=== PATIENT | female | born 1960 | race African-American/Black ===

== ENCOUNTER 2020-05-15 14:58 | Inpatient (IN) | payer OTHER ==
[~2020-05-15] VITALS: Ht 160 cm; Wt 110.7 kg
[~2020-05-15 14:58] MED LIST: ACCUPRIL; ADVAIR 500-501 EACH; AMOXICILLIN875 MG PO; ARTHROTEC 50 E1 EACH; HYDROCHLOROTHIA25 M1; LANTUS; LEVOTHYROXIN0.125 M2; LIPITOR40 MG; NEXIUM40 MG; NORVASC10 MG; ROBAXIN 750 MG750 MG; TRAMADOL 50 MG50 MG
[2020-05-15 15:02] VITALS: BP 77/47
--- NOTE | 2020-05-15 15:44 | NUR ---
UNSUCCESSFUL IV ATTEMPT. CALLED LAB AND REQUESTED FOR STAT BLOOD DRAW. TASHI WITH IV TEAM STATED THEY CANNOT PLACE LINE UNTIL BLOOD DRAWN
--- NOTE | 2020-05-15 15:54 | NUR ---
CANDACE STATED FIRST EMERGENCY CONTACT IS AUNT CAMMIE COLON [phone] SPOKE TO CAMMIE WHO STATES SHE HAS NO HISTORY ON PT AND REQUESTS SPOUSE BE CALLED AND BE CHANGED TO FIRST EMERGENCY CONTACT. SPOUSE NAME [phone]. ATTEMPTED TO CALL ANGELA WITH NO ANSWER AND UNAVAILABLE TO LEAVE VOICE MESSAGE.
[2020-05-15 16:15] LABS: HEMATOCRIT 28.2 % (37.0-47.0); HEMOGLOBIN 8.9 gm/dL (12.0-15.0); MCH 28.7 pg (26.0-34.0); MCHC 31.6 g/dL (28.0-37.0); MCV 91.1 fL (80.0-100.0); RBC 3.1 mil/uL (4.20-5.00); RDW 17.2 % (10.5-14.5)
[2020-05-15 16:24] LABS: CALCIUM 8.9 mg/dL (8.5-10.1); CREATININE 4.5 mg/dL (0.6-1.0); POTASSIUM 3.6 mmol/L (3.5-5.1)
[2020-05-15 16:30] LABS: ALBUMIN 1.7 g/dL (3.4-5.0); TOTAL BILIRUBIN 0.4 mg/dL (0.2-1.0); TOTAL PROTEIN 7.1 g/dL (6.4-8.2)
[2020-05-15 16:36] LABS: APTT 33.6 Seconds (24.5-32.8); INR 1.1; PROTIME 12.4 Seconds (9.3-11.4)
--- NOTE | 2020-05-15 18:06 | NUR ---
VAT CONSULTED FOR CVAD. PT HAS NONFCN FISTULAS BILATERALLY. BOTH IJ'S ATTEMPTED BUT UNABLE TO PASS GUIDEWIRE ON EITHER SIDE. DR GRANADOS NOTIFIED THAT IR WILL BE NEEDED FOR PLACEMENT. PIV OBTAINED AFTER 5 ATTEMPTS
[2020-05-15 18:55] VITALS: BP 91/52
[2020-05-15 20:03] VITALS: BP 134/60
[2020-05-15] MEDS ORDERED: ELIQUIS2.5 MG PO (20:48)
[2020-05-15] MEDS ORDERED: AMIODARONE HCL400 MG PO (20:48)
[2020-05-15] MEDS ORDERED: ASA81BEC PO (20:49)
[2020-05-15] MEDS ORDERED: ATORVASTATIN CA20 MG PO (20:50)
[2020-05-15] MEDS ORDERED: CYMBALTA60 MG PO (20:51)
[2020-05-15] MEDS ORDERED: FLORINEF ACETA0.1 MG PO (20:52)
[2020-05-15] MEDS ORDERED: NEURONTIN100 MG PO (20:55)
[2020-05-15] MEDS ORDERED: HUMALOG100 UNIT/1 SUBQ (20:59)
[2020-05-15] MEDS ORDERED: LANTUS SUBQ (20:59)
[2020-05-15] MEDS ORDERED: IPRAT-ALBUT 0.5-3 ML INH (21:01)
[2020-05-15] MEDS ORDERED: LEVOXYL88 MCG PO (21:02)
[2020-05-15] MEDS ORDERED: MIDODRINE HCL 55 M1 PO (21:04)
[2020-05-15] MEDS ORDERED: PERCOCET 5-3251 EACH PO (21:05)
[2020-05-15] MEDS ORDERED: SEROQUEL 25 MG25 M1 PO (21:06)
[2020-05-15] MEDS ORDERED: PROTONIX40 M2 PO (21:06)
[2020-05-15] MEDS ORDERED: RENVELA0.8 GM PO (21:07)
[2020-05-15 22:10] VITALS: BP 96/60
[2020-05-16 00:26] VITALS: BP 90/66
--- NOTE | 2020-05-16 03:25 | NUR ---
PT ADMITTED FROM ER FROM [facility] FOR SEPSIS, LLE ARTERIAL OCCLUSION, R/O COVID , ANEMIA, FOR POSSIBLE PROCEDURE.NPO AFTER MN. NS BOLUS GIVEN FOR LOW BP. PT ASYMPTOMATIC WITH BP. DR GARCIA WAS NOTIFIED. FENTANYL 50 MCG GIVEN X1 FORE C/O SEVERE LLE PAIN. LLE IS DISCOLORED. AREAS AROUND KNEE HEEL AND TOES APPEAR DISCOLORED AND NECROTIC. UNABLE TO OBTAIN PEDAL PULSE WITH DOPPLER. RIGHT FOOT HAS PULSE WITH DOPPLER. SKIN IS MILDLY COOL TO TOUCH. SATS 98% ON 2LNC. LUNG SOUNDS ARE DIMINSHE BUT UNLABORED ON 2LNC. PICTURES OF WOUNDS LOCATED FROM FALL ON HEAD AND AREAS ON BUTTOCKS, SACRAL, LEFT KNEE ANKLE, FOOT, GROIN AREAS NEAR THIGHS. BTOCKS. ALL PICTURED UPON ADMISSION . PT NPO AFTER MN. SHE IS SLEEPING QUIETLY PRESENTLY AFTER FENTANYL FOR PAIN.
[2020-05-16 05:59] VITALS: BP 119/47
--- NOTE | 2020-05-16 07:17 | EKG ---
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 : 1960 Requested By: Fiordaliza Han Order Number: [id number] MD: Sung Ngo Measurements Intervals [place] Rate: 117 P: HI: QRS: 112 QRSD: 96 T: -14 QT: 346 QTc: 483 Interpretive Statements Baseline artifact Possible sinus tachycardia with first-degree AV block cannot rule out atrial flutter Incomplete right bundle branch block Prolonged QT No previous ECG available for comparison Electronically Signed On 05-16-2020 7:17:45 PLATFORM STAPLER by Sung Ngo [email or web address] <ELECTRONICALLY SIGNED> By: Sung Ngo MD, [facility] 05/16/20 0717 D: [id number] 12 Sung Ngo MD, [facility] /EPI
--- NOTE | 2020-05-16 07:49 | NUR ---
PT SLEEPY. SHE HAS BEEN NPO SINCE AFTER MN. DIALYSIS IS IN PROGRESS PRESENTLY. BP BETTER THIS AM. ALL WOUNDS PICTURED AND FOAM DRESSINGS APPLIED UNTIL W/C PUTS IN ORDERS. NO S/S DISTRESS.
[2020-05-16 09:03] VITALS: BP 77/39
[2020-05-16 11:58] VITALS: BP 85/54
--- NOTE | 2020-05-16 15:25 | NUR ---
INITIAL ASSESSMENT: Consult received. DANIELA reviewed chart and spoke with nursing and attending physician. Pt was admitted from [facility] due to sepsis/left foot wound. Pt is on IV abx. Pt with hx of ESRD and is on dialysis. DANIELA spoke with pt's cousin, Maldonado, via phone. Introduced role of DANIELA. Pt's cousin and aunt are listed as contacts for pt. Pt has been at [facility] for skilled placement. PT was at [facility] prior to going to [facility]. Pt is normally w/c bound. Pt was living at home prior to hospitalization. Pt's cousin states pt was recently assigned to a new PCP and unsure name of new PCP. Plan is for pt to return to [facility] when medically stable. DANIELA faxed clinical info to [facility] for review. DANIELA is following to assist as needed with discharge planning.
[2020-05-16 19:31] VITALS: BP 129/50
--- NOTE | 2020-05-16 21:40 | NUR ---
PT RESTING IN BED TALKING ON PHONE. PT STATING SHE IS CALLING HER BUT NOT DIALING ANY NUMBERS AND DECLINING STAFF ASSISTANCE. PT ALERT TO SELF AND SITUATION. IVF INTACT. PT VERBALIZED UNDERSTANDING OF SURGERY TOMORROW LATE AFTERNOON. PT EDUCATED NPO AFTER BREAKFAST. PT INCONTINENT OF LOOSE STOOL WITH ODOR. MULTIPLE WOUNDS ON BOTTOM AND BARRIER CREAM APPLIED, FRONT OF THIGHS HAVE FOAM DRESSINGS INTACT. RLE NO PULSE PREVIOUSLY DOCUMENTED, RLE REQUIRING DOPPLER FOR PULSE CHECK. PT C/O PAIN BOTTOM AND LLE PRN PROVIDED. STAFF REPOSITIONING PT. BED ALARM ON. PT YELLS OUT FOR ASSISTANCE VERSUS USING CALL LIGHT.
--- NOTE | 2020-05-16 21:43 | NUR ---
RECORDS FROM [facility] OBTAINED BY FAX.
[2020-05-16 23:06] LABS: HEP B SURFACE Ab(ANTI-HBS Non Reactive (()); HEPATITIS B SURFACE AG Negative (Negative)
[2020-05-17 03:21] VITALS: BP 103/50
[2020-05-17 05:33] LABS: HEMATOCRIT 28.8 % (37.0-47.0); HEMOGLOBIN 8.7 gm/dL (12.0-15.0); MCH 28.4 pg (26.0-34.0); MCHC 30.1 g/dL (28.0-37.0); MCV 94.2 fL (80.0-100.0); RBC 3.05 mil/uL (4.20-5.00); RDW 17.4 % (10.5-14.5); WBC 8.6 thou/uL (4.0-11.0)
[2020-05-17 05:37] LABS: CALCIUM 8.3 mg/dL (8.5-10.1); MAGNESIUM 1.7 mg/dL (1.8-2.4); POTASSIUM 3.9 mmol/L (3.5-5.1)
[2020-05-17 06:05] LABS: CREATININE 2.8 mg/dL (0.6-1.0)
[2020-05-17 09:29] LABS: BE(vivo) 3.3 mmol/L (-2 to +3); HCO3 28.7 mmol/L (22.0-26.0); PCO2 47.9 mmHg (35.0-45.0); PO2 141.2 mmHg (80.0-100.0); pH 7.395 (7.360-7.450); sO2 98.8 % (92.0-98.0)
--- NOTE | 2020-05-17 09:45 | NUR ---
INFORMED DR ODONENLL OF PT [facility] LABS
[2020-05-17 10:36] LABS: ALBUMIN 1.5 g/dL (3.4-5.0); TOTAL BILIRUBIN 0.4 mg/dL (0.2-1.0); TOTAL PROTEIN 5.8 g/dL (6.4-8.2)
[2020-05-17 12:05] VITALS: BP 115/63
--- NOTE | 2020-05-17 12:55 | NUR ---
DANIELA reviewed chart and spoke with nursing and attending physician. Pt is on IV abx. Ortho consulted. Pt to have surgery today, possible amputation. DANIELA faxed clinical info to [facility] for review. Left message for admissions to provide update. DANIELA is following to assist as needed with discharge planning.
--- NOTE | 2020-05-17 14:00 | NUR ---
PT OFF UNIT WITH SURGERY
[2020-05-17 16:02] VITALS: BP 96/63
--- NOTE | 2020-05-17 19:18 | NUR ---
PT REMAINS IN SURGERY AT CHANGE OF SHIFT.
[2020-05-17 19:40] VITALS: BP 89/50
[2020-05-17 20:31] VITALS: BP 90/50
[2020-05-17 21:02] VITALS: BP 95/50
--- NOTE | 2020-05-17 21:07 | NUR ---
PROVIDER CONTACTED RE RESTARTING PTS DIET SINCE SURGERY COMPLETE.
--- NOTE | 2020-05-17 21:45 | HC ---
[facility] [place] [address] CONSULTATION Name: JUDITH GAMING Room #: 364- ADM IN M.R.#: [id number] Admission: 05/15/20 Attend Phys: Grant Jefferson MD Discharge: Date of : 58 Report #: [id number] THIS REPORT FOR: cc: FAM - Family physician unknown FAM - Family physician unknown Clinton Young DO ~ DATE OF SERVICE: 05/16/2020 ASSESSMENT AND PLAN: Arterial insufficiency, left lower extremity after tibial nailing in 03/2020 with arterial occlusion. RECOMMENDATIONS: At this point, I have recommended and discussed with the patient at length her treatment options. Because she is currently having symptoms from necrosis of her left lower extremity, I have recommended removal of tibial nail and vboja-vvh-yrso amputation. All risks, benefits, possible complications, alternative treatments and rationale behind treatment recommendations were discussed and she expresses understanding. We will plan on proceeding with procedure over the next 24-48 hours. HISTORY OF PRESENT ILLNESS: This is a 60-year-old female with multiple medical conditions including congestive heart failure, COPD, end-stage renal disease with dialysis dependence, type 2 diabetes with chronic kidney disease and hypertension. ALLERGIES: None. MEDICATIONS: Reviewed on the MAY in the electronic health record ____ [employer]. PHYSICAL EXAMINATION: GENERAL: The patient is awake and alert and in no acute distress. CARDIOVASCULAR: Reveals no significant lower extremity edema. ABDOMEN: Soft and nontender. NEUROLOGIC: Left lower extremity is insensate to the foot and ankle. MUSCULOSKELETAL: Focused exam of the left lower extremity reveals necrosis of the great toe as well as multiple areas of the lesser toes extending into the forefoot and mid foot. No palpable pulse. Sensation is not intact. The skin appears to be that of dry gangrene necrosis. RADIOLOGY STUDIES: Reviewed with CTA on 05/15/2020 reveal findings consistent with advanced fatty atrophy of the abductor digiti minimi as well as a healing [address] [address] CONSULTATION Name: JUDITH GAMING Room #: 364-P ADM IN .R.#: [id number] Admission: 05/15/20 Attend Phys: Grant Jefferson MD Discharge: Date of : 58 Report #: [id number] oblique fracture of the distal fibula and findings consistent with significant arterial occlusion. <ELECTRONICALLY SIGNED> By: Clinton Young DO 05/17/20 2145 1023 [id number] Clinton Young DO /nt
--- NOTE | 2020-05-17 22:36 | NUR ---
PT RETURNED FROM SURGERY APPROX 1999. PT AOX2 PREVIOUS ORIENTATION. PT SMILING TALKING. L STUMP WRAPPED IN TAYLOR AND DRY AND INTACT, WARM FOR CIRCULATION CHECK. RLE SCD ON, DOPPLER REQUIRED FOR PULSE CHECK. PT TOLERATING LIQUIDS. PT RESTING. PRN FOR PAIN REQUESTED. STAFF TO REPOSITION. BED ALARM ON.
[2020-05-18] VITALS (10 sets, daily range): BP systolic 83–113; BP diastolic 43–85
--- NOTE | 2020-05-18 03:00 | NUR ---
PTS HR INCREASED TO 120, VS TAKEN AND PROVIDER CALLED. DURING PHONE CALL HR RETURNED TO 88. PT DENIED BEING IN PAIN. PT NOW RESTING. NO NEW ORDERS.
[2020-05-18 05:32] LABS: CALCIUM 8.6 mg/dL (8.5-10.1); CREATININE 3.6 mg/dL (0.6-1.0); MAGNESIUM 1.9 mg/dL (1.8-2.4); POTASSIUM 4.8 mmol/L (3.5-5.1)
[2020-05-18 05:38] LABS: HEMATOCRIT 28.3 % (37.0-47.0); HEMOGLOBIN 8.3 gm/dL (12.0-15.0); MCHC 29.4 g/dL (28.0-37.0); MCV 95.3 fL (80.0-100.0); RBC 2.97 mil/uL (4.20-5.00); RDW 17.4 % (10.5-14.5); WBC 9.7 thou/uL (4.0-11.0)
--- NOTE | 2020-05-18 13:04 | NUR ---
PT VITALS STABLE, PT ACTING VERY DROWSY. ABLE TO SMILE EQUALLY, RAISE BOTH HANDS. TRACK WITH EYES, PUPILS SLUGGISH. CONTACTED MACHINE CELL TUBER, REPEAT ASSESSMENT. PT IS DUE FOR DIALYSIS THIS AFTERNOON. WILL MONITOR VS, LOC FOR CHANGE.
--- NOTE | 2020-05-18 13:18 | NUR ---
PT IN ROOM VISITING. PT IS AROUSABLE BUT WILL NOT SPEAK. PT CLARIFIED PT DOES WANT FULL CODE INCLUDING CHEST COMPRESSIONS.
--- NOTE | 2020-05-18 13:27 | NUR ---
PT SPOUSE STATES PT HAS TRILOGY MACHINE TO SLEEP WITH. PT SPOUSE LEFT HOSPITAL TO GET MACHINE FROM [facility]
[2020-05-18 14:06] LABS: BE(vivo) -0.8 mmol/L (-2 to +3); PCO2 54.3 mmHg (35.0-45.0); PO2 65.8 mmHg (80.0-100.0); pH 7.298 (7.360-7.450); sO2 90.6 % (92.0-98.0)
--- NOTE | 2020-05-18 14:10 | NUR ---
PHYSICIAN PAGED FOR CRITICAL LAB
--- NOTE | 2020-05-18 14:17 | NUR ---
DR ODONNELL ADVISED BIPAP. RT IN ROOM HOOKING UP BIPAP.
--- NOTE | 2020-05-18 15:20 | NUR ---
PT ON BIPAP, TOLERATING WELL. PT SPOUSE IN ROOM, BROUGHT HOME TRILOGY TO PT ROOM.
--- NOTE | 2020-05-18 18:39 | NUR ---
THIS RN WITNESSED BRIGHT RED BLOOD DURING WOUND CARE TEAM EXAMINATION OF PT AROUND 1809. DR BELLE QUINTANILLA, 500ML BOLUS ORDER RECEIVED. CONSULTED RENAL, GI. RECOMMENDATION TRANSFER TO ICU.
--- NOTE | 2020-05-18 19:28 | NUR ---
REPORT GIVEN TO STEEL CUTTER. DIALYSIS NURSE IN ROOM WITH PT. PT REQUESTING PAIN MEDICATION. PT IS ALERT AND RESPONSIVE. BRIGHT RED BLOOD STILL PRESENT FROM RECTUM.
[2020-05-18 19:33] LABS: HEMATOCRIT 23.7 % (37.0-47.0); HEMOGLOBIN 7.1 gm/dL (12.0-15.0)
--- NOTE | 2020-05-18 20:36 | NUR ---
A #6F TRIPLE LUMEN CENTRAL LINE WAS PLACED IN THE LEFT IJ. VAT NURSE ATTEMPTED 2 SITES PRIOR. THIS WAS THE 3RD ATTEMPT AT PLACEMENT. LINE SECURED AND A CHEST XRAY WAS ORDERED FOR CONFIRMATION
--- NOTE | 2020-05-18 23:48 | NUR ---
REPORT RECIVED. PATIENT IS A/OX2. REMAINS LETHARGIC. DIALYSIS ON PROGRESS. BP TOLERATING DIALYSIS. AFEBRILE. RECTAL BLEED NOTED. TALKED TO DR ESQUIVEL. DOES NOT WANT TO TRANSFUSE AT THE MOMENT. WILL MONITOR AND RECHECK HG IN THE AM. PATIENT HAS TX ORDERS TO ICU. REPORT CALLED TO HOSPICE ADMINISTRATOR. PATIENT OFF THE UNIT APPROX 2300. ALL QUESTIONS ANSWERED. DENIES NEEDS.
[2020-05-19] VITALS (65 sets, daily range): BP systolic 65–148; BP diastolic 25–124
--- NOTE | 2020-05-19 01:43 | NUR ---
Patient succesfully transfered to ICU room 240 at 2340. Patient stable on protonix gtt. Discussed low blood pressures and status with KD Piña. No new orders at this time. Will continue to monitor.
[2020-05-19 05:53] LABS: HEMATOCRIT 25.1 % (37.0-47.0); HEMOGLOBIN 7.5 gm/dL (12.0-15.0); MCH 28.1 pg (26.0-34.0); MCHC 29.7 g/dL (28.0-37.0); MCV 94.8 fL (80.0-100.0); RBC 2.65 mil/uL (4.20-5.00); RDW 17.7 % (10.5-14.5); WBC 9.7 thou/uL (4.0-11.0)
[2020-05-19 06:07] LABS: CALCIUM 8.5 mg/dL (8.5-10.1); POTASSIUM 3.4 mmol/L (3.5-5.1)
[2020-05-19 06:15] LABS: CREATININE 2.3 mg/dL (0.6-1.0)
--- NOTE | 2020-05-19 13:37 | NUR ---
chart review, pt came down from 3w, blood stool. needed bipap at hs and 4Lnc day time. discussed with hospitalist, no anticipated dc over weekend. will cont following as needed for dc needs. will update aura early next week.
[2020-05-19 14:09] LABS: HEMATOCRIT 24.7 % (37.0-47.0); HEMOGLOBIN 7.3 gm/dL (12.0-15.0)
--- NOTE | 2020-05-19 15:01 | NUR ---
ASSUMED CARE AT 0700. PATIENT OFF UNIT FOR GI PROCEDURE AT 1440.
[2020-05-20] VITALS (87 sets, daily range): BP systolic 61–185; BP diastolic 23–156
[2020-05-20 05:19] LABS: CALCIUM 8.5 mg/dL (8.5-10.1); CREATININE 2.8 mg/dL (0.6-1.0); MAGNESIUM 1.7 mg/dL (1.8-2.4); POTASSIUM 3.6 mmol/L (3.5-5.1)
[2020-05-20 05:30] LABS: HEMOGLOBIN 6.7 gm/dL (12.0-15.0)
[2020-05-20 05:32] LABS: HEMATOCRIT 22.1 % (37.0-47.0); MCH 28.7 pg (26.0-34.0); MCHC 30.5 g/dL (28.0-37.0); MCV 93.9 fL (80.0-100.0); RBC 2.35 mil/uL (4.20-5.00); RDW 17.7 % (10.5-14.5); WBC 9.3 thou/uL (4.0-11.0)
--- NOTE | 2020-05-20 14:12 | NUR ---
DIALYSIS COMPLETED. PT CLEANED OF LARGE DARK RED BLOODY LIQUID STOOL WITH LARGE CLOTS NOTED. DR. BELLE QUINTANILLA.
--- NOTE | 2020-05-20 14:15 | NUR ---
PAGE SENT OUT TO DR. MENDEZ WITH GI GROUP REGARDING ACTIVE LOWER GIB.
[2020-05-20 14:39] LABS: HEMOGLOBIN 6.6 gm/dL (12.0-15.0)
[2020-05-20 14:41] LABS: HEMATOCRIT 21.4 % (37.0-47.0)
[2020-05-20 16:37] LABS: APTT 38.1 Seconds (24.5-32.8); INR 1.1; PROTIME 12.3 Seconds (9.3-11.4)
--- NOTE | 2020-05-20 17:51 | NUR ---
PT HAD TWO EPISODES OF VERY LARGE BLOODY STOOLS RESULTING IN THE PT GOING TO THE OR FOR A FLEX SIG AND POSSIBLE EGD W/ GENERAL ANESTHESIA. DIALYSIS DONE TODAY. PRBC X 2 UNITS GIVEN TODAY. PT NPO AND HAS HAD PROBLEMS WITH HYPOGLYCEMIA. D5W INFUSION STARTED TODAY. PT HAS HAD C/O PAIN IN HER "LEFT FOOT". OVERALL, PT NOT PROGRESSING TOWARD GOALS.
--- NOTE | 2020-05-20 19:00 | NUR ---
AT 1830, PT ARRIVED BACK TO UNIT VIA BED. PT PLACED BACK ON CONTINUOUS CARDIAC MONITORING. PT ON NRB MASK, DROWSY, BUT AWAKENS TO VOICE AND FOLLOWS COMMANDS. REPORT RECEIVED AT BEDSIDE. PT'S , DOMINIC, CALLED AND PROVIDED UPDATE, GIVEN OPPORTUNITY TO ASK QUESTIONS. REASSURANCES AND EMOTIONAL SUPPORT PROVIDED.
[2020-05-21] VITALS (42 sets, daily range): BP systolic 67–143; BP diastolic 19–127
[2020-05-21 04:00] LABS: CALCIUM 7.9 mg/dL (8.5-10.1); CREATININE 2.1 mg/dL (0.6-1.0); POTASSIUM 3.8 mmol/L (3.5-5.1)
[2020-05-21 04:58] LABS: HEMATOCRIT 22.9 % (37.0-47.0); HEMOGLOBIN 7.2 gm/dL (12.0-15.0); MCH 28.8 pg (26.0-34.0); MCHC 31.4 g/dL (28.0-37.0); RBC 2.49 mil/uL (4.20-5.00); WBC 17.2 thou/uL (4.0-11.0)
--- NOTE | 2020-05-21 10:00 | NUR ---
ASSUMMED CARE OF THIS PATIENT FROM [facility] AT 0700 THIS AM. PATIENT INITIALLY ALERT AND ABLE TO TAKE AM MEDICATIONS. SLEEPING NOW.
[2020-05-21 13:10] LABS: BE(vivo) 0.1 mmol/L (-2 to +3); HCO3 25.9 mmol/L (22.0-26.0); PCO2 48.4 mmHg (35.0-45.0); PO2 86.4 mmHg (80.0-100.0); pH 7.346 (7.360-7.450)
--- NOTE | 2020-05-21 14:00 | NUR ---
PATIENT NOTED TO MORE LETHARGIC AT [address] ODONNELL ROUNDED AND AWARE OF PATIENT STATUS. ORDERS NOTED. UNABLE TO TAKE PO AT NOON DUE TO ASPIRATION RISK. ABG'S DRAWN AND CALLED TO DR ODONNELL. PATIENT PLACED BACK ON THE BIPAP.
--- NOTE | 2020-05-21 19:14 | NUR ---
PATIENT INITIALLY SLEEPING BUT AWOKE WITH DRESSING CHANGE. C/O LOWER EXTERMITY PAIN. PAIN ISSUE ADDRESSED. ABLE TO TAKE DIET THIS EVENING AND ORIENTED TO PERSON AND PLACE. YELLING AT TIMES AND MONITOR SHOWING ST WITH AGGITATION. PATIENT IS CALM NOW AND MONITOR SR. PROGRESSING SLOWLY TOWARDS OUTCOME GOALS.
[2020-05-22] VITALS (41 sets, daily range): BP systolic 80–159; BP diastolic 22–94
[2020-05-22 03:08] LABS: MCH 28.9 pg (26.0-34.0); MCHC 31.9 g/dL (28.0-37.0); MCV 90.5 fL (80.0-100.0); RBC 2.16 mil/uL (4.20-5.00); RDW 17.9 % (10.5-14.5); WBC 14.9 thou/uL (4.0-11.0)
[2020-05-22 03:12] LABS: CALCIUM 8.3 mg/dL (8.5-10.1); CREATININE 2.7 mg/dL (0.6-1.0); POTASSIUM 3.2 mmol/L (3.5-5.1)
[2020-05-22 03:26] LABS: HEMOGLOBIN 6.2 gm/dL (12.0-15.0)
[2020-05-22 03:27] LABS: HEMATOCRIT 19.5 % (37.0-47.0)
--- NOTE | 2020-05-22 11:54 | NUR ---
chart review. discussed during rounds. bs low, o2 nc and bipap. unable to visit with her rt speech visiting her. cm spoke with cousin jovany via phone call. no concerns voiced, just want to talk with nurse make sure he can still visit. cm passed on to bedside nurse to call jovany. updates to be provided to [facility].
--- NOTE | 2020-05-22 13:02 | NUR ---
If PEG is functioning, recommend start Nepro at 20ml/hr and progress to goal of 40ml/hr until determined if pt can take po with tolerance.
[2020-05-22 13:27] LABS: HEMATOCRIT 24.8 % (37.0-47.0); HEMOGLOBIN 7.9 gm/dL (12.0-15.0)
--- NOTE | 2020-05-22 15:31 | NUR ---
FAXED CLINICAL UPDATE TO [facility] RECEIVED CONFIRMATION AND TRIED TO LEAVE MSG WITH THE (DON) BUT WAS ON HOLD FOR 8 MINUTES. WILL F/U WITH FACILITY TOMORROW.
--- NOTE | 2020-05-22 18:31 | PATH ---
[facility] [address] [place] [address] PATHOLOGY RPT PROCEDURE Name: JUDITH GAMING Room #: 240-P ADM IN M.R.#: [id number] Admission: 05/15/20 Date of : 58 Discharge: Report #: [id number] Path Case #: [id number] [facility] Accession Number: [id number] . 01 Material submitted: . knee - LEFT BELOW THE KNEE AMPUTATION . 01 Clinical history: . BELOW KNEE AMPUTATION NECROTIC LEFT LEG . 02 Diagnosis: Leg, left, below knee amputation: - Skin and subcutaneous tissue showing extensive ulceration along with gangrenous necrosis as well as degeneration. - Bone with acute osteomyelitis as well as osteonecrosis. - Anterior and posterior tibial vasculature showing moderate to marked calcific atherosclerosis. - Skin margin partially necrotic at the lateral aspect. - Bone margin grossly viable and unremarkable. (IUV:bijan; 05/22/2020) MBR 05/22/2020 1624 Local . 02 Electronically signed: . Ashlee Garnett MD, Pathologist NPI- [id number] . 01 Gross description: . The specimen is received fresh in a red biohazard bag, labeled "Judith Gaming, left below knee amputation". Received is a left below the knee amputation measuring 23.0 cm from heel to toe, 16.6 cm from heel to skin margin, 30.6 cm from heel to tibial bone margin, and 33.3 cm from heel to fibular bone margin. The bone margins are blunt in appearance, consistent with transection, and appear grossly unremarkable. All five toes are present. The nails are yellow-jane and severely thickened in appearance. All five toes are dusky coello-brown to predominately mummified in appearance. The skin and soft tissue margins appear predominately viable. There is an overlying area along the lateral aspect of the skin at the margin that is dark coello and flaky in appearance measuring 11.3 x 3.5 cm. Overlying the medial malleolus, there is a linear incision measuring 4.8 cm in length displaying underlying bone that appears to be fractured. Near this linear incision, the epidermal surface is light brown to coello-brown in appearance. There is a second linear incision on the anterior aspect of the lower iniguez measuring 5.5 x 1.0 cm exposing underlying soft tissue. Sectioning through the anterior and posterior tibial vasculatures reveals pinpoint to patent and slightly calcified lumens. The specimen is submitted representatively as follows: [address] [address] PATHOLOGY RPT PROCEDURE Name: JUDITH GAMING Room #: 240-P ADM IN M.R.#: [id number] Admission: 05/15/20 Date of : 58 Discharge: Report #: [id number] Path Case #: [id number] . A1 grossly unremarkable skin and soft tissue margin A2 counter sales representative section of dusky coello, flaky skin on lateral aspect of skin margin A3 counter sales representative bone fragments from linear incision overlying medial malleolus, following decalcification A4 counter sales representative sections of lesion surrounding first described linear incision A5 anterior and posterior tibial vasculatures. A6 counter sales representative sections of second described linear incision . Gross photographs are taken. (CAA; 05/20/2020) QAC/QAC 05/22/2020 1620 Local . 02 Pathologist provided ICD-10: L97.929, M86.172, M87.9, I70.90 . 02 CPT . 306796, [id number] Specimen Comment: A courtesy copy of this report has been sent to [phone] Specimen Comment: Report sent to Performed at: [address] [facility], [place], [place] [id number] MD Ramez Varghese MD Phone: [phone] Performed at: [address] [facility] [id number] MD Ashlee Garnett MD Phone: [phone]
[2020-05-23] VITALS (51 sets, daily range): BP systolic 77–160; BP diastolic 27–72
--- NOTE | 2020-05-23 04:19 | NUR ---
ASSUMED CARE OF PATIENT FROM RN AT APPROXIMATELY 2200. REQUESTED PAIN MEDICINE ONE TIME, STATES IT RELIEVES PAIN. AT 0330 HEART RATE INCREASED TO 130'S-140'S, STAT EKG OBTAINED. Jeniffer VILLAGOMEZ OPTICAL SCIENTIST NOTIFIED OF ABNORMAL RESULTS. ORDERS RECIEVED. PATIENT WORE HOME BIPAP WHILE SLEEPING. NO OTHER CONCERNS AT THIS TIME. PROGRESSING SLOWLY TOWARDS POC GOALS.
[2020-05-23 05:11] LABS: HEMATOCRIT 24.6 % (37.0-47.0); HEMOGLOBIN 7.9 gm/dL (12.0-15.0); MCH 28.5 pg (26.0-34.0); MCV 89.1 fL (80.0-100.0); RBC 2.76 mil/uL (4.20-5.00); RDW 18.3 % (10.5-14.5); WBC 16.7 thou/uL (4.0-11.0)
[2020-05-23 05:35] LABS: CREATININE 3.4 mg/dL (0.6-1.0); POTASSIUM 3.4 mmol/L (3.5-5.1)
--- NOTE | 2020-05-23 07:20 | EKG ---
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 : 1960 Requested By: Rocio Benavides Order Number: [id number] MD: Uday Loera Measurements Intervals [place] Rate: 138 P: WI: QRS: 100 QRSD: 69 T: 256 QT: 300 QTc: 455 Interpretive Statements AFIB Right axis deviation Low voltage, precordial leads Borderline repolarization abnormality Compared to ECG 05/15/2020 16:13:57 2:1 AV block now present Right-axis deviation now present Low QRS voltage now present Incomplete right bundle-branch block no longer present Prolonged QT interval no longer present Electronically Signed On 05-23-2020 7:19:51 CDT by Uday Loera [email or web address] <ELECTRONICALLY SIGNED> By: Uday Loera MD, FAC 05/23/20 0719 3 3 Uday Loera MD, [facility] /EPI
[2020-05-23 17:32] LABS: HEMATOCRIT 24.6 % (37.0-47.0); HEMOGLOBIN 7.7 gm/dL (12.0-15.0)
--- NOTE | 2020-05-23 19:07 | NUR ---
ASSUMED CARE 0700. PT AFTERNOON BM SUSPICIOUS OF RECTAL BLEED... GI AND GENERAL SURGERY MADE AWARE. H&H DRAWN. HGB LITTLE CHANGE. CONTINUE TO MONITOR. AFIB RATE CONTROLLED W/PO AMIO THROUGHOUT DAY.1L REMOVED VIA DIALYSIS THIS AM.
[2020-05-24] VITALS (33 sets, daily range): BP systolic 65–192; BP diastolic 29–74
[2020-05-24 05:48] LABS: HEMATOCRIT 24.7 % (37.0-47.0); MCH 28.6 pg (26.0-34.0); MCHC 32.2 g/dL (28.0-37.0); RBC 2.78 mil/uL (4.20-5.00); RDW 17.6 % (10.5-14.5); WBC 18.5 thou/uL (4.0-11.0)
[2020-05-24 06:48] LABS: POTASSIUM 3.5 mmol/L (3.5-5.1)
[2020-05-24 06:56] LABS: CREATININE 2.1 mg/dL (0.6-1.0)
--- NOTE | 2020-05-24 08:34 | NUR ---
PT THIS MORNING SEEN BY THIS RN, BLOOD SUGAR WAS WDL NO COVERAGE NEEDED. PT CALLING OUT FOR HELP FREQUENTLY, OFTEN UNSURE OF WHAT SHE NEEDS, ANXIOUSNESS/RESTLESSNESS MANIFESTED AEB STATEMENTS LIKE "I NEED TO GET OUT OF HERE" RN REASSURED TO THE PT THAT SHE STILL NEEDS THE CLOSE MONITORING HER CONDITION IS CRITICAL. RN ALSO NOTED THAT PT HAD A PINK/LIQ/SLUSH LIKE BM. POLYETHELENE GLYCOL HELD THIS MORNING. PT WRITHING IN PAIN AND CALLING OUT. PAIN MED WILL BE GIVEN PER ORDER.
[2020-05-24 09:30] LABS: HEMATOCRIT 24.9 % (37.0-47.0); MCH 28.4 pg (26.0-34.0); MCV 88.7 fL (80.0-100.0); RBC 2.81 mil/uL (4.20-5.00); RDW 17.7 % (10.5-14.5); WBC 17.3 thou/uL (4.0-11.0)
[2020-05-24 16:54] LABS: HEMATOCRIT 24.6 % (37.0-47.0); HEMOGLOBIN 7.7 gm/dL (12.0-15.0)
--- NOTE | 2020-05-24 23:38 | NUR ---
ASSUMED CARE AT 1900. PT W/ELEVATED BP AND SLIGHTLY TACHYCARDIC W/ C/O PAIN; VS IMPROVED AFTER GIVING IVP DILAUDID. PT HAD A MALI/RED, MODERATE AMT OF STOOL; NOTED GREEN SLOUGH COMING OFF SACRAL WOUND; PT ALSO C/O BEING VERY TENDER AROUND ANUS AND MUTLIPLE SMALL WOUND SITES ON BUTTOCKS, APPLIED ZGUARD TO ALL OPEN/TENDER AREAS. NO RESIDUAL ON PEG, GAVE 100 ML WATER FLUSH W/MEDS. TELEPHONE REPORT GIVEN TO FELICITAS MEMBRENO ON CCU AT 2240. PT TRANSPORTED BY BED TO ROOM 210 APPROX 2315. PT LEFT ICU IN STABLE CONDITION.
[2020-05-25 04:40] VITALS: BP 116/62
[2020-05-25 05:57] LABS: HEMATOCRIT 25.8 % (37.0-47.0); HEMOGLOBIN 8.2 gm/dL (12.0-15.0); MCH 28.7 pg (26.0-34.0); MCHC 31.9 g/dL (28.0-37.0); MCV 89.8 fL (80.0-100.0); RBC 2.87 mil/uL (4.20-5.00); RDW 17.8 % (10.5-14.5); WBC 17.3 thou/uL (4.0-11.0)
[2020-05-25 06:13] LABS: CALCIUM 8.1 mg/dL (8.5-10.1); CREATININE 2.6 mg/dL (0.6-1.0); POTASSIUM 3.7 mmol/L (3.5-5.1)
--- NOTE | 2020-05-25 08:09 | NUR ---
PATIENT ARRIVED FROM ICU LAST NIGHT. ASSESSMENTS CHARTED, MEDS CHARTED GIVEN. RESTING IN BED DURING SHIFT.ON D5 MAINTENANCE FLUID. PATIENT HAS FISTULA IN LEFT THIGH, GOOD THRILL AND BRUIT. LEFT BKA WOUND DRESSED IN KERLIX. TAYLOR BANDAGE WAS REMOVED TO PROMOTE HEALING. PLAN IS FOR PATIENT TO GO TO IR TODAY AND HAVE AN AORTAGRAM WITH POSSIBLE STENT. PATIENT ALSO HAVE DIALYSIS SESSION THIS MORNING FIRST.
--- NOTE | 2020-05-25 11:29 | NUR ---
PT IS FINISHING UP DIALYSIS. IR NOTIFIED THAT DIALYSIS IS COMPLETED. PT IS MORE ALERT AND AWAKE. VSS. WILL CONTINUE TO MONITOR.
--- NOTE | 2020-05-25 13:06 | NUR ---
PT CLEANED UP FROM A BOWEL MOVEMENT. PTS BOWEL MOVEMENT WAS BROWN WITH RED TINGE TO IT. THE COLOR WAS NOT LUIS RED. GI WAS NOTIFIED.
--- NOTE | 2020-05-25 14:06 | NUR ---
IR PRESENTED TO TAKE PT FOR RUNOFF PROCEDURE. PT WILL BE OFF UNIT STARTING AT THIS TIME.
[2020-05-25 15:13] LABS: HCO3 26.7 mmol/L (22.0-26.0); PCO2 48.1 mmHg (35.0-45.0); PO2 181.4 mmHg (80.0-100.0); pH 7.363 (7.360-7.450); sO2 99.2 % (92.0-98.0)
--- NOTE | 2020-05-25 15:40 | HC ---
[facility] [place] [address] CONSULTATION Name: JUDITH GAMING Room #: 210-P ADM IN M.R.#: [id number] Admission: 05/15/20 Attend Phys: Grant Jefferson MD Discharge: Date of : 58 Report #: [id number] THIS REPORT FOR: cc: FAM - Family physician unknown FAM - Family physician unknown William Ca MD ~ DATE OF SERVICE: 05/16/2020 CHIEF COMPLAINT: Lower extremity ischemia. HISTORY OF PRESENT ILLNESS: This is a 60-year-old female patient with end-stage renal disease, on hemodialysis; hypertension; type 2 diabetes mellitus and peripheral vascular disease, who presented to the Emergency Room with left lower extremity pain. She lives in a nursing care facility. She has had a recent fracture and had some increased pain to her left lower extremity and some color change in her foot. This is all per her medical history. She is not able to answer any specific questions at this time. At some point in time, she had a cast in place, which is no longer present. PAST MEDICAL HISTORY: Positive for hypertension, type 2 diabetes mellitus, COPD, end-stage renal disease, requiring hemodialysis; congestive heart failure. Previous history of pancreatitis. SOCIAL HISTORY: Unknown. Does currently living in nursing care facility. FAMILY HISTORY: Unknown. ALLERGIES: No known drug allergies. MEDICATIONS: Include amiodarone, Eliquis, aspirin, atorvastatin, Cymbalta, Florinef, Neurontin, Lantus, Humalog, Levoxyl, ProAmatine, Percocet, Protonix, Seroquel, Renvela, Lantus, Advair. REVIEW OF SYSTEMS: Not obtainable due to the patient's inability to communicate underlying diminished level of alertness. PHYSICAL EXAMINATION: VITAL SIGNS: At this time include temperature 36.3, pulse 100, respiratory rate of 19, blood pressure 85/54. GENERAL: This is a chronically ill-appearing female patient who appears to be in mild discomfort. HEENT: Head normocephalic. NECK: Supple. LUNGS: Diminished. HEART: Irregular. [facility] [address] [place] [address] CONSULTATION Name: JUDITH GAMING Room #: 210[facility] IN M.R.#: [id number] Admission: 05/15/20 Attend Phys: Grant Jefferson MD Discharge: Date of : 58 Report #: [id number] ABDOMEN: Soft. EXTREMITIES: Lower extremities demonstrate deep tissue injury to the left heel. The left foot is ischemic with some evidence of evolving necrosis and eschar on the dorsal medial aspect. There appears to be darkening areas on the left knee, skin folds. His incisions to the left knee with that have some necrosis that has expanded beyond the incision line. These areas appear to be tender when palpated. There is some scarring in the right groin. There is a skin tear in the left groin and abdominal skin fold. She has unstageable pressure ulcers to the bilateral buttocks and sacrum. NEUROLOGIC: The patient does open her eyes, is noncommunicative. LABORATORY DATA: Sodium 132, potassium 3.6, chloride 93, CO2 32, BUN 45, creatinine 4.5, glucose 116. Lactic acid is 1.3, total bilirubin 0.4, albumin is 1.7. INR is 1.1. White blood cell count 18,000; hemoglobin of 8.9; hematocrit of 28.2. CLINICAL IMPRESSION: 1. Severe peripheral arterial disease with necrotic left lower extremity, status post recent leg fracture. 2. Sepsis. 3. End-stage renal disease, requiring hemodialysis. 4. Hypothyroidism. 5. Severe protein-calorie malnutrition with albumin 1.5. RECOMMENDATIONS: At this point in time, we recommend Betadine to the areas of eschar and otherwise be left open to air. Dr. Keyes has been consulted for angiography and consideration of revascularization. She is certainly at great risk for limb loss and may require any amputate of surgery. Continue with ongoing medical management and consider aggressive nutritional support to maximize wound healing. I appreciate being asked to see her in consultation. <ELECTRONICALLY SIGNED> By: William Ca MD 05/25/20 1540 [id number] William Ca MD /nt
--- NOTE | 2020-05-25 15:59 | NUR ---
PT OFF UNIT AT 1600 FOR 1600 ASSESSMENT. PT IS IN IR.
--- NOTE | 2020-05-25 16:51 | NUR ---
pt returned from carpenter/labor, IR. pts right groin site is clean dry and dressin intact with no hematoma present. assessment performed and charted. vss
[2020-05-25 20:12] VITALS: BP 101/52
[2020-05-26 00:14] VITALS: BP 117/58
[2020-05-26 04:01] VITALS: BP 117/41
[2020-05-26 05:15] LABS: HEMATOCRIT 22.2 % (37.0-47.0); HEMOGLOBIN 7.1 gm/dL (12.0-15.0); MCH 28.2 pg (26.0-34.0); MCHC 31.9 g/dL (28.0-37.0); MCV 88.5 fL (80.0-100.0); RBC 2.5 mil/uL (4.20-5.00); RDW 17.2 % (10.5-14.5); WBC 16.9 thou/uL (4.0-11.0)
[2020-05-26 05:42] LABS: CALCIUM 7.8 mg/dL (8.5-10.1); CREATININE 2.2 mg/dL (0.6-1.0); POTASSIUM 3.4 mmol/L (3.5-5.1)
[2020-05-26 08:00] VITALS: BP 109/57
--- NOTE | 2020-05-26 08:04 | NUR ---
PATIENTS CARES WERE ASSUMED AT SHIFT CHANGE.PATIENT WAS ASSESSED AND MEDS WERE PASSED. PATIENT DOES NOT CALL APPROPRIATELY. HER PREFERRED METHOD IS TO YELL OUT. ALL ATTEMPS WERE MADE TO REDIRECT HER TO QUIET THE UNITE. ROUNDS WERE MADE. THE BED IS IN A LOW AND LOCKED POSITION
--- NOTE | 2020-05-26 09:46 | NUR ---
ASSUMED PT CARE AT 0700. PT ASSESSMENT PERFORMED AND CHARTED. PT HAD A LOOSE BOWEL MOVEMENT. PT CLEANED. PT STATES SHE IS HAVING SOME LOWER EXTREMITY PAIN. PAIN MED GIVEN AND REASSESSED. PTS VSS. MUNIRA CONTINUE TO MONITOR.
[2020-05-26 12:02] VITALS: BP 114/39
--- NOTE | 2020-05-26 15:10 | NUR ---
Case discussed with the care team in rounds. No weekend dc anticipated. Pt may need stump revision. Pt had dialysis yesterday. DC interstate planner nika clinical updated to [facility] this afternoon. Pt will likely need to return there under her skilled medicare benefits if she has days available. They are holding her bed.
[2020-05-26 16:00] VITALS: BP 121/55
[2020-05-26 19:03] VITALS: BP 126/78
[2020-05-27 00:25] VITALS: BP 106/53
[2020-05-27 03:14] VITALS: BP 102/38
[2020-05-27 04:59] LABS: HEMOGLOBIN 6.7 gm/dL (12.0-15.0)
[2020-05-27 05:00] LABS: HEMATOCRIT 20.6 % (37.0-47.0); MCH 28.7 pg (26.0-34.0); MCHC 32.3 g/dL (28.0-37.0); RBC 2.31 mil/uL (4.20-5.00); RDW 17.7 % (10.5-14.5); WBC 14.7 thou/uL (4.0-11.0)
[2020-05-27 05:20] LABS: CALCIUM 7.8 mg/dL (8.5-10.1); CREATININE 2.7 mg/dL (0.6-1.0); POTASSIUM 3.4 mmol/L (3.5-5.1)
--- NOTE | 2020-05-27 05:57 | NUR ---
ASSUMED CARE AT CHANGE OF SHIFT; PATIENT MUMBLES/HARD TO UNDERSTAND; PT NOT ABLE TO ANSWER BASIC QUES ABOUT SELF THIS AM; C/O OF SEVERE PAIN TO LE MANAGED WITH PRN MEDICATIONS WITH PARTIAL RELIEF OF PAIN; PATIENT IS ANURIC/ON DIALYSIS; SEVERAL BLOOD-TINGED BM LAST NOC AND THIS AM/HGB 6.7 THIS AM; PROVIDER ORDER FOR STAT TYPE & SCREEN AND 1 UNIT RBC TRANSFUSION TO PATIENT; TRIPLE LUMEN IJ/ALL PORTS FLUSHED AND CONT IVF RUNNING; TUBE FEED AT GOAL OF 40 ML/HR WITH Q4H 100 ML FLUSHES GIVEN; SA/ST WITH PVC ON THE MONITOR; VSS; CONT 3L NC AND BIPAP AT NOC; WILL CONTINUE TO MONITOR AND FOLLOW POC.
[2020-05-27 07:00] VITALS: BP 137/685
[2020-05-27 12:20] VITALS: BP 179/80
[2020-05-27 15:15] VITALS: BP 111/45
[2020-05-27 19:14] VITALS: BP 133/75
[2020-05-27 19:18] LABS: HEMATOCRIT 24.7 % (37.0-47.0); HEMOGLOBIN 8.1 gm/dL (12.0-15.0)
[2020-05-28 03:59] VITALS: BP 125/59
[2020-05-28 07:10] VITALS: BP 104/47
[2020-05-28 12:20] VITALS: BP 90/49
[2020-05-28 16:13] VITALS: BP 115/45
[2020-05-28 20:07] VITALS: BP 123/50
[2020-05-29 01:20] LABS: RBC 2.38 mil/uL (4.20-5.00); WBC 11.2 thou/uL (4.0-11.0)
[2020-05-29 01:21] LABS: HEMATOCRIT 20.6 % (37.0-47.0); HEMOGLOBIN 6.8 gm/dL (12.0-15.0); MCH 28.4 pg (26.0-34.0); MCHC 32.7 g/dL (28.0-37.0); MCV 86.9 fL (80.0-100.0); RDW 16.5 % (10.5-14.5)
[2020-05-29 01:30] LABS: CALCIUM 7.9 mg/dL (8.5-10.1); CREATININE 2.9 mg/dL (0.6-1.0)
[2020-05-29 03:17] VITALS: BP 124/48
[2020-05-29 08:00] VITALS: BP 122/52
--- NOTE | 2020-05-29 08:57 | NUR ---
ASSUME CARE 1900. PT A/O TO PERSON ONLY BUT ANSWERS MOST QUESTIONS APPROPRIATELY. INTERMITTENT LEFT LEG PAIN WITH SOME RELIEF FROM DILAUDID. VERY POOR OLERANCE TO ACTIVITY. PT./OT ON BOARD. ASSESSMENT CHARTED. SR ON MONITOR. POOR PROGRESSIN WITH POC. PLAN IS TO CONTINUE WITH ABX THERAPY/MONITOR LOC AND MANAGE NUTIRITON. WILL CONTINUE TO MONITOR AND FOLLOW WITH POC
[2020-05-29 14:17] VITALS: BP 106/58; BP 158/65
--- NOTE | 2020-05-29 15:41 | NUR ---
ASSESSMENT CHARTED. PT ORIENTED TO SELF WITH CONFUSION. VSS. HAD HEMODIALYSIS THIS SHIFT. RECEIVED 1 UNIT OF BLOOD. TURNED AND CHANGED NEEDED. NO CONCERNS AT THIS TIME.
[2020-05-29 16:00] VITALS: BP 94/80
--- NOTE | 2020-05-29 16:22 | NUR ---
FAXED CLINICAL UPDATE TO [facility] RECEIVED CONFIRMATION AND LEFT MSG WITH ADM.
--- NOTE | 2020-05-29 16:23 | NUR ---
FAXED CLINICAL UPDATE TO [facility] RECEIVED CONFIRMATION AND LEFT MSG WITH SUN IN ADM.
[2020-05-29 18:23] LABS: HEMATOCRIT 26.1 % (37.0-47.0); HEMOGLOBIN 8.4 gm/dL (12.0-15.0)
[2020-05-30 04:33] VITALS: BP 95/49
[2020-05-30 05:56] LABS: WBC 11.8 thou/uL (4.0-11.0)
[2020-05-30 05:58] LABS: MCH 28.5 pg (26.0-34.0); MCHC 33.3 g/dL (28.0-37.0); MCV 85.6 fL (80.0-100.0); RBC 2.07 mil/uL (4.20-5.00); RDW 17.3 % (10.5-14.5)
[2020-05-30 06:00] LABS: CALCIUM 7.6 mg/dL (8.5-10.1); CREATININE 2.1 mg/dL (0.6-1.0); POTASSIUM 3.2 mmol/L (3.5-5.1)
[2020-05-30 06:14] LABS: HEMATOCRIT 17.7 % (37.0-47.0); HEMOGLOBIN 5.9 gm/dL (12.0-15.0)
--- NOTE | 2020-05-30 08:00 | NUR ---
DR BOTELLO PAGED TO INFORM HIM ABOUT PT CONT TO HAVE BLOODY STOOLS. PT IS RECEIVING DIALYSIS THIS AM ALONG WITH 2 UNITS ON BLOOD. PT C/O PAIN IN THE LLE, PRN PAIN MEDICATION GAVE PER ORDER. PT IS ALERT TO SELF AND ABLE TO CONVERSATE. PT IS POOR HISTORIAN. PT IS WEAK AND IS A Q2H TURN, WOUNDS CONT ON COCCYXS AREAS CLEAN AND DRY
--- NOTE | 2020-05-30 08:33 | NUR ---
ASSUME CARE 1900. PT/VITALS STABLE. INTERMITTENT LLE PAIN WITH MODERATE RELIEF FROM PAIN MEDICATION. SR/ST ON MONITOR. /O TO PERSON ONLY. ANSWERS SOME QUESTIONS APPROPRIATELY BUT MOSTLY TALK TO HERSELF. NO DISTRESS NOTED. COPIOUS AMOUNTS OF BLOODY STOLLS WITH LOTS OF CLOTS NOTED THROUGH THE NIGHT. HGB THIS AM AT 5.9/ HTC 17.1. ORDERS FOR 2 UNITS TO BE TRANSFUSED PER GENERAL SURGERY. DIALYSIS TODAY. PT ASYMPTOMATIC AT THIS POINT. WILL CONTINUE TO MONITOR AND FOLLOW WITH POC
[2020-05-30 10:48] VITALS: BP 116/51; BP 129/68
[2020-05-30 11:03] VITALS: BP 118/57; BP 129/68; BP 135/52
--- NOTE | 2020-05-30 11:40 | NUR ---
[address] MORALES REGARDING PT CONT TO HAVE BRIGHT BLOODY STOOLS WITH CLOTS PRESENT. STATES SHE IS AWARE AND TO KEEP PT NPO. THIS NURSE STILL HASNT HEARD BACK FROM SURGEON SOCORRO AT 0800, GAVE PERSONAL NUMBER TO THIS NURSE FOR THE PAGE SYSTEM TO SEND TO DR TOMAS. 1125 IGNACIO FROM PAGE SYSTEM CALLED AND PAGE SENT AGAIN TO THOM REGARDING PTS INCREASE IN BLOODY STOOLS. PT VS STABLE AT THIS TIME AND PT IS RESTING IN BED POST DIALYSIS. VS 156/72, HR 100, RR 18, 96% 2L NC. PT C/O PAIN AND DISCOMFORT IN LLE. CALL LIGHT IN REACH AND FREQUENT ROUNDING ON THIS PATIENT. PT DENIES QUESTIONS OR CONCERNS.
--- NOTE | 2020-05-30 15:07 | NUR ---
THOM CALLED REGARDING RESUKING TUBE FEEDINGS. DR ORDERED TO HOLD FEEDINGS D/T GI MAY POSSIBLY DO A PROCEDURE 05/31.
[2020-05-30 16:00] VITALS: BP 101/58
--- NOTE | 2020-05-30 16:19 | NUR ---
PT CONT TO HAVE OPEN WOUNDS TO BILATERAL BACK OF THIGHS, COCCYX AND BUTTOCKS. AREAS ARE OPEN, GRANULATION NOTED ON ALL WOUNDS. AREA CLEANED DRESSING APPLIED TO STAGE 2 COCCYX WOUND. OTHER AREAS CLEANED AND CREAM TREATMENT APPLIED. L BKA DRESSING CHANGED, JULIO INTACT AND NO SIGNS OF INFECTION NOTED AT INCISION SITE. BETADINE, ABD,KERLIX AND TAPE APPLIED TO AREA. PT TOLERATED WELL. CALL LIGHT IN REACH
--- NOTE | 2020-05-30 18:06 | NUR ---
PT RESTING IN BED AT THIS TIME, PT HAS NOT HAD A BLOODY STOOL SINCE BACK FROM THE OR AROUND 1500, PT C/O PAIN IN THAT BKA, DRESSING CHANGED AND PT TOLERATED WELL, PT CONT TO BE A Q2H TURN AT THIS TIME D/T PRESSURE INJURIES ON BUTTOCKS. CALL LIGHT IN REACH AND QHR ROUNDING ON PT.
[2020-05-30 19:42] VITALS: BP 106/62
[2020-05-31] VITALS (7 sets, daily range): BP systolic 65–110; BP diastolic 39–68
[2020-05-31 01:22] LABS: HEMOGLOBIN 7.5 gm/dL (12.0-15.0); MCH 28.4 pg (26.0-34.0); MCHC 32.6 g/dL (28.0-37.0); MCV 87.2 fL (80.0-100.0); RBC 2.64 mil/uL (4.20-5.00); RDW 16.2 % (10.5-14.5); WBC 13.6 thou/uL (4.0-11.0)
--- NOTE | 2020-05-31 01:31 | NUR ---
ASSUMED CARE OF PATIENT AT 1900. VSS. AT SHIFT CHANGE, PATIENT NEEDED PAD CHANGED DUE TO STOOL. NO BLOOD PRESENT AT THAT TIME. RECHECKED AT 2300, PAD SOAKED WITH CLOTS. AM LABS OBTAINED EARLY. RECHECKED PAD AT 0100. PAD SOAKED AGAIN, LUIS RED BLOOD POURING FROM RECTUM. DR THOM QUINTANILLA. WAITING CORE INSPECTOR BACK.
[2020-05-31 05:54] LABS: HEMATOCRIT 21.8 % (37.0-47.0); HEMOGLOBIN 7.1 gm/dL (12.0-15.0)
[2020-05-31 12:29] LABS: ABSOLUTE NEUTROPHILS 11.9 thou/uL (1.4-8.2); BASOPHILS 0.1 % (0.0-2.0); HEMATOCRIT 20.2 % (37.0-47.0); HEMOGLOBIN 6.7 gm/dL (12.0-15.0); LYMPHOCYTES 7.8 % (24.0-44.0); MCH 28.9 pg (26.0-34.0); MCHC 32.9 g/dL (28.0-37.0); MCV 87.7 fL (80.0-100.0); MONOCYTES 11.7 % (1.0-8.0); PLATELET COUNT 201 thou/uL (150-400); POLYS 80.4 % (36.0-66.0); RBC 2.31 mil/uL (4.20-5.00); RDW 16.4 % (10.5-14.5); WBC 14.8 thou/uL (4.0-11.0)
[2020-05-31 12:44] LABS: APTT 30.4 Seconds (24.5-32.8); INR 1.1; PROTIME 12.3 Seconds (9.3-11.4)
[2020-05-31 12:50] LABS: CREATININE 1.9 mg/dL (0.6-1.0); MAGNESIUM 1.8 mg/dL (1.8-2.4); PHOSPHORUS 2.2 mg/dL (2.5-4.9); POTASSIUM 3.9 mmol/L (3.5-5.1)
--- NOTE | 2020-05-31 15:57 | NUR ---
met with patient. She has been rec therapy/rehab at [facility]. She dializes MWF at [place], 05/17 BKA. Patient cont plan to return to [place] once stable. Sp with annetta Okeefe reviewed visitor policy. Nico plans to visit in am notified RN.Patient agreed that is her designated visitor.
[2020-05-31 18:20] LABS: HEMATOCRIT 23.2 % (37.0-47.0); HEMOGLOBIN 7.6 gm/dL (12.0-15.0)
--- NOTE | 2020-05-31 18:35 | NUR ---
1740 PT HAD SMALL BLOODY BM, DR TOMAS CALLED AND AWARE OF INCIDENT. STATES TO PASS ON TO NOC TO NOTIFY HIM OF IF/WHEN PT HAS BLOODY STOOLS, PT DENIES PAIN AT THIS TIME, PT RECEIVED 1 UNIT PRBC, ONE UNIT IS READY IF H&H BELOW [address] JADE. H&H 7.63. CRYPTO INFUSED. NO REACTION NOTED, PT CONT TO HAVE EDEMA IN RIGHT EXTREMITY, DRESSING APPLIED TO COCCYX WOUND, BKA STUMP DRESSING CHANGED. PT TOLERATED WELL. CALL LIGHT IN REACH
[2020-06-01] VITALS (21 sets, daily range): BP systolic 79–255; BP diastolic 26–187
[2020-06-01 06:06] LABS: HEMOGLOBIN 6.9 gm/dL (12.0-15.0)
[2020-06-01 06:08] LABS: HEMATOCRIT 20.5 % (37.0-47.0)
--- NOTE | 2020-06-01 08:07 | NUR ---
PATIENT REMAINS A/O TO PERSON AND PLACE. DENIES SOA. AFEBRILE. VSS. [address] TOMAS UPDATED. AT APPROX 0710 DIALYSIS NURSE AT THE BEDSIDE TO START HD. DR TOMAS AT THE BEDSIDE. REPORT GIVEN TO MORNING RN
--- NOTE | 2020-06-01 10:56 | NUR ---
RT UNABLE TO DRAW ABG. ADVISED RN AND DIALYSIS DOCTOR. PER DOCTOR WOULD BE BETTER IF VBG WAS DONE. PATIENT ALERT AND TALKING.
--- NOTE | 2020-06-01 13:22 | NUR ---
AT 1300, PT TRANSPORTED TO ROOM 250 FROM ROOM 210 VIA BED W/ O2 AND MONITOR, AFTER RECEIVING REPORT FROM OFFGOING RN, PRAKASH. UPON ARRIVAL TO ICU, PT MOVED FROM CCU BED TO ICU BED, PLACED ON O2 6L/MIN VIA NC AND CONTINUOUS CARDIAC MONITORING W/ SPO2 AND FREQUENT VS. B/P UPON ARRIVAL NOTED TO BE 211/120, SR W/ FREQUENT PVC'S AND SPO2 100%. PT DROWSY BUT WAKES UP TO VOICE AND STATES HER NAME. PT CONFUSED TO TIME, PLACE AND SITUATION. PT REORIENTED W/ REASSURANCES AND EMOTIONAL SUPPORT PROVIDED.
--- NOTE | 2020-06-01 13:57 | NUR ---
SPOKE W/ DR. ALARCON OVER THE PHONE. UPDATED ON SERIES OF EVENTS. ORDER RECEIVED TO GO AHEAD AND GIVE MIDODRINE. GI TEAM AT BEDSIDE, STATED IT IS OK FROM THEIR STANDPOINT TO GIVE THE PT A DIET. UPDATE PROVIDED AT BEDSIDE.
--- NOTE | 2020-06-01 14:56 | NUR ---
Pt transfered to ICU today due to ongoing bleeding and complex medical situation. Dr. Cerda, palliative care consulted and he spoke with the pt's spouse. Plan at this time is to continue full code status with continued aggressive treatment. Cm to follow and updated [facility] as needed.
--- NOTE | 2020-06-01 18:26 | NUR ---
PT AWAKE AND ALERT, CONFUSED TO TIME, PLACE AND SITUATION. PT KNOWS SHE IS IN THE HOSPITAL, BUT CANNOT SAY WHICH ONE. PT HAVING AUDITORY HALLUCINATION, STATING SHE HEARS A BABY CRYING. REORIENTED PT TO TIME, PLACE AND SITUATION. PT STATES SHE FEELS BETTER. B/P FLUCTUATIONS NOTED. DIALYSIS NURSE HERE ASKING ABOUT IR PROCEDURE. UPDATE GIVEN. DIALYSIS NURSE STATED THAT THE PT WILL BE RESCHEDULED FOR TOMORROW. OVERALL PT IS NOT PROGRESSING TOWARD GOALS.
--- NOTE | 2020-06-01 18:26 | NUR ---
AT 1400, IR STAFF TO ICU TO ASSESS PT FOR PROCEDURE. STATED THAT THEY WOULD MAKE THE DECISION TO DO THE PROCEDURE IN THE ROOM OR IN THE DEPARTMENT AND LET THIS RN KNOW.
[2020-06-02] VITALS (92 sets, daily range): BP systolic 39–190; BP diastolic 16–161
[2020-06-02 04:30] LABS: CALCIUM 8.3 mg/dL (8.5-10.1); CREATININE 2.6 mg/dL (0.6-1.0); POTASSIUM 3.6 mmol/L (3.5-5.1)
[2020-06-02 04:34] LABS: RBC 2.12 mil/uL (4.20-5.00); RDW 15.8 % (10.5-14.5)
[2020-06-02 04:38] LABS: MCH 29.4 pg (26.0-34.0); MCHC 32.9 g/dL (28.0-37.0); MCV 89.3 fL (80.0-100.0); WBC 15.3 thou/uL (4.0-11.0)
[2020-06-02 04:41] LABS: HEMOGLOBIN 6.2 gm/dL (12.0-15.0)
--- NOTE | 2020-06-02 07:16 | NUR ---
PATIENT REMAINS A/O TO PERSON AND PLACE. C/O PAIN LLE. PAIN MEDS GIVEN ORDERED. AFEBRILE. SBP 90S WITH MAP> 65 OTHERWISE VSS. HG 6.3. ORDER FOR 1 UNIT RBC OBTAINED. I UNIT TRANSFUSING. TOLERATING IT WELL. REMAINS ON 2L VIA NC. DENIES NEEDS. REPORT GIVENT TO ONCOMING RN.
[2020-06-02 12:31] LABS: HEMATOCRIT 23.4 % (37.0-47.0); HEMOGLOBIN 7.6 gm/dL (12.0-15.0)
--- NOTE | 2020-06-02 12:53 | NUR ---
Please receive clarification on nutrition orders with surgery, and primary. ? if pt will remain on clear liquids, change to NPO, or restart enteral nutrition.
--- NOTE | 2020-06-02 13:10 | NUR ---
chart review. cm visited with pt at bedside. cm cont to wear face mask and shield during visit. she pleasant. no anticipated dc over the weekend. when ready for dc back to [place] # [phone]
--- NOTE | 2020-06-02 14:00 | NUR ---
PAGED DR. TINSLEY. RE GREEN DRAINAGE FROM LLE WOUND. AWAITING CALL BACK.
--- NOTE | 2020-06-02 15:30 | NUR ---
DR. ALARCON(RENAL ) TOLD HD NURSE NO PRESSORS AT THIS TIME.
--- NOTE | 2020-06-02 15:30 | NUR ---
PT WENT UNRESPONSIVE, OPENS EYES TO STERNAL RUB. + LARGE RED BLOODY STOOL AROUND RECTAL TUBE NOTED.. DR. TOMAS CALLED IMMEDIATELY BP LOW FLUID BOLUS GIVEN PER DIALYSIS NURSE WITH GOOD RESPONSE. STAT HBG DRAWN. BLOOD SUGAR 144.
--- NOTE | 2020-06-02 15:44 | NUR ---
CALLED DR. MORALES. UPDATE GIVEN. ON THE WAY TO ICU. WILL CALL DR. TOMAS TO LET HIM KNOW PT IS HERE.
[2020-06-02 16:01] LABS: HEMATOCRIT 21.8 % (37.0-47.0); HEMOGLOBIN 7.2 gm/dL (12.0-15.0)
--- NOTE | 2020-06-02 17:15 | NUR ---
OR STAFF HERE. PT TO OR ON MONITOR WITH OR STAFF. BBK NOTIFIED TO SEND UNIT OF BLOOD TO OR.
--- NOTE | 2020-06-02 19:04 | NUR ---
PT NOT PROGRESSING TOWARDS GOALS. ON HOME BIPAP DUE TO SNORING RESP WHEN ASLEEP. POST OP WITH RECTAL PACKING. WILL GO AHEAD AND TRANSFUSE PRBCS PER DR. MORALES.
[2020-06-03] VITALS (25 sets, daily range): BP systolic 83–119; BP diastolic 21–77
[2020-06-03 01:13] LABS: HEMATOCRIT 25.6 % (37.0-47.0); HEMOGLOBIN 8.5 gm/dL (12.0-15.0); MCH 29.1 pg (26.0-34.0); MCHC 33.2 g/dL (28.0-37.0); MCV 87.8 fL (80.0-100.0); RBC 2.92 mil/uL (4.20-5.00); RDW 16.9 % (10.5-14.5); WBC 17.3 thou/uL (4.0-11.0)
[2020-06-03 01:20] LABS: CALCIUM 7.9 mg/dL (8.5-10.1); POTASSIUM 3.4 mmol/L (3.5-5.1)
[2020-06-03 01:23] LABS: CREATININE 1.5 mg/dL (0.6-1.0)
--- NOTE | 2020-06-03 06:23 | NUR ---
ASSUMED CARE OF PATIENT AT 1900. NO BLEEDING THIS SHIFT. REMAINS NPO AND ON BIPAP. NOT PROGRESSING TOWARDS POC GOALS.
[2020-06-03 15:39] LABS: HEMATOCRIT 25.6 % (37.0-47.0); HEMOGLOBIN 8.5 gm/dL (12.0-15.0)
--- NOTE | 2020-06-03 17:46 | NUR ---
PT AWAKE AND ALERT MOST OF THE DAY WITH A SHORT NAP IN THE AFTERNOON. VS HAVE BEEN MORE STABLE TODAY. HGB REMAINED STABLE THROUGHOUT THE DAY W/ NO EVIDENCE OF ACTIVE BLEEDING NOTED. PT'S SPOUSE, DOMINIC, CAME TO VISIT THIS AFTERNOON, AT WHICH TIME UPDATE WAS GIVEN ON PT'S CONDITION AND QUESTIONS WERE ANSWERED TO THE LIMITS OF MY ABILITY. WORKING TOWARD GOALS OF PLAN OF CARE WITH DIFFICULTIES.
[2020-06-04] VITALS (13 sets, daily range): BP systolic 80–107; BP diastolic 36–64
[2020-06-04 06:12] LABS: HEMATOCRIT 25.8 % (37.0-47.0); HEMOGLOBIN 8.5 gm/dL (12.0-15.0); MCH 29.2 pg (26.0-34.0); MCV 88.5 fL (80.0-100.0); RBC 2.92 mil/uL (4.20-5.00); RDW 17.2 % (10.5-14.5); WBC 10.4 thou/uL (4.0-11.0)
--- NOTE | 2020-06-04 07:50 | NUR ---
PATIENT HGB REMAINS UNCHANGED. NO RETAL BLEEDING THROUGH NOC SHIFT, PACKING INTACKT, REMIANS NPO EXCEPT MEDICATIONS. PEG TUBE CLAMPED, FLUSHED 30ML. INTEMITNA CPAP WORN LAST NIGHT, AWAKE WATCHING TV MOST OF NIGHT. NO PROGRESS TOWARD GOAL, EXCEPT HGB STEADY. PATIENT DID WELL WITH GUIDED IMAGERY FOR PAIN DISTRACTION. DR. TINSLEY WOULD LIKE A PHOTO OF LEFT LEG STUMP NEXT DRESSING CHANGE.
--- NOTE | 2020-06-04 12:26 | NUR ---
CENTRAL LINE NOTED TO BE LOOPED AND MALPOSITIONED, ORDER AND CONSENT OBTAINED AND A NE #5F TRIPLE LUMEN CENTRAL LINE PLACED PER POLICY. LINE IS 25CM ADVANCED WITHOUT DIFFICULTY. XRAY SHOWING MID SVC AND IN PROPER POSITION FOR USE
[2020-06-05 00:45] VITALS: BP 101/69
[2020-06-05 03:19] LABS: HEMOGLOBIN 8.2 gm/dL (12.0-15.0); MCH 29.2 pg (26.0-34.0); MCHC 32.8 g/dL (28.0-37.0); RBC 2.81 mil/uL (4.20-5.00); RDW 17.3 % (10.5-14.5); WBC 8.3 thou/uL (4.0-11.0)
[2020-06-05 03:35] LABS: CREATININE 2.6 mg/dL (0.6-1.0)
[2020-06-05 04:45] VITALS: BP 105/78
--- NOTE | 2020-06-05 07:49 | NUR ---
AT 1915 START OF PM SHIFT 06/04/2020, THIS RN LEFT PHONE MESSAGE FOR DR TINSLEY. A PHOTO OF LEFT BKA WOUND WAS NOT ABLE TO OBTAINED WITH DRESSING CHANGE 06/04/20. DAY RN REPORTED PHOTOS WERE TAKEN, BUT UNABLE TO BE PULLED FROM THE MEMORY STICK. DAY RN REPORTED NECROTIC TISSUE PRESENT AT TOP OF WOUND PROXIMAL AND AROUND THE SUTURES. THIS RN DID NOT OBSERVE, DRESSNG INTACT. THIS RN ASKED 06/05/20 DAY RN TO ATTEMPT TO OBTAIN PHOTOS AT DRESSING CHANGE IF POSSIBLE.
--- NOTE | 2020-06-05 07:56 | NUR ---
PATIENT WAS CONFUSED AND UNABLE REMEBER TO FOLLO DIRECTIONS AFTER SECOND OF BEING ASKED. MULTIPLE TIME THIS RN OBSERVED CARMEN HOOD TO EAT ITEMS LIKE O2 SAT PROBES, NASAL CANULA TUBING, CALL LIGHT SPEAKER/ REMOTE. THIS RN HAD TO BE IN THE ROOM WITH CARMEN DEDICATIED TO RESET CARDIAC MOITOR ALARMS REPLACING, LEADS THEY WERE PULLED OFF, PLACING OXYGEN BACK ON PT, AND REPLAING OXYGEN SAT MONITORS. PATEINT NOT PROGRESSING TOWARDS GOALS THROUGHT SHIFT. PATIENT DID MAINTIAN SYSTOLIC BP 80'S THROUGHOUT SHIFT. UNABLE TO USE GIUDED IMAGERY THIS SHIFT TO RELAX CARMEN, SHE COULD NOT FOLLOW ALONG. PATIENT WOULD NOT LEAVE HER GOWUN ON, RELACED MUTILPE TIME WITH CADRIAC LEADS. PARTIEL BATH GIVEN TO DISTRACT AND RELAX, FOR COMFORT. PATIENT IS MORE CALM IF STAFF IF VISBALE OR PRESENT. SHE WILL YELL AND SPEAK TO SOMEONE NOT THERE IF SHE SEE A PESRON IN ROOM WITH HER. HEMODIALYSIS TODAY 06/05/20. RIGHT CHEST HD CVC SHOULD HAVE NEW DRESSING PLACED PER DIALYSIS NURSE WITH RITA TODAY.
[2020-06-05 09:45] VITALS: BP 94/73
[2020-06-05 12:00] VITALS: BP 122/40
--- NOTE | 2020-06-05 12:30 | O ---
[facility] [place] [address] OPERATIVE REPORT Name: JUDITH GAMING Room #: 205-P ADM IN M.R.#: [id number] Admission: 05/15/20 Attend Phys: Grant Jefferson MD Discharge: Date of : 58 Report #: [id number] THIS REPORT FOR: cc: FAM - Family physician unknown FAM - Family physician unknown Clinton Young DO ~ DATE OF SERVICE: 05/17/2020 PROCEDURES PERFORMED: Left lower extremity removal tibial nail and [id number]-[id number] amputation. POSTOPERATIVE DIAGNOSES: Left lower extremity vascular occlusion, status post tibial nailing. ANESTHESIA: General. POSITION: Supine. COMPLICATIONS: None. BLOOD LOSS: Less than 100 mL. GROSS FINDINGS: Consistent with vascularly compromised lower extremity below the ankle as well as nonhealed fracture of the tibia with intramedullary nail in place. DESCRIPTION OF PROCEDURE: The patient was seen in the preoperative holding area. Site was marked, consent was verified. I had a long discussion with the patient as well as her who was present at the bedside as to our reason to proceed with this surgery. She has significant vascular compromise in the face of a poorly healing tibia fracture as well as chronic kidney disease, dialysis dependent and longstanding diabetes. The patient was receiving perioperative antibiotics and was wheeled back to the operating room. Department of Anesthesia administered general anesthetic and maintained control of the airway. Once adequately anesthetized, a tourniquet was placed on the left upper leg, but not inflated. Sterile prep and drape with Betadine was performed of the left lower extremity. At this point, we first removed the tibial nail by removing 3 distal screws through puncture wounds as well as 1 proximal screw. Once this was performed, the entry incision for the tibial nail was opened sharply down to the nail. At this point, the extraction device was screwed in place and the nail was removed without difficulty. The wounds were copiously irrigated and padded dry. At this point, incision was made for uadkf-hkn-mzxb amputation. It was done approximately 1 handbreadth below the tibial tubercle in an almost transverse fashion anteriorly with proximally based full thickness flap posteriorly down to the musculotendinous junction of the [address] [address] OPERATIVE REPORT Name: JUDITH GAMING Room #: 205-P ADM IN M.R.#: [id number] Admission: 05/15/20 Attend Phys: Grant Jefferson MD Discharge: Date of : 58 Report #: [id number] Achilles. Electrocautery was used to further develop the plane in the soft tissue going full thickness. The anterior compartment musculature was first divided with electrocautery. Vessels were ligated with silk suture. Nerves were tagged with a hemostat. We continued to divide the tissue until we were posterior to both the tibia and fibula. At this point, the tibia was then cut using an oscillating saw. The anterior flare was then further contoured with the saw to create a beveled edge. We itzel our attention to the fibula. Because of her soft bone, a rongeur was used to cut through the fibula approximately 2-3 cm more proximal than the tibia. At this point, the amputation site was then placed in a flexed position. An amputation knife was used to take down the tissue just behind the bony fibula and tibia approximately 20 cm and then cut through the skin. At this point, copious irrigation was run through the wound and it was suctioned dry. The musculofascial flap was brought anteriorly to ascertain how much length was needed. At this point, [place] stitches were placed with #5 Ethibond and passed through a bone tunnel in the anterior tibia to secure the muscular flap. Remainder of the flap was removed sharply. At this point, a similar maneuver was performed with the skin flap that was posteriorly and proximally based. It was brought anteriorly and stitched to the subcutaneous and skin layer anteriorly. Multiple deep Vicryl sutures were initially used to secure the flap in place followed by intermittent nylon sutures to approximate the skin and it was finally closed with jaswant. The remainder of the incision of the tibial entry wound near the patella was copiously irrigated. The bone tunnel was then packed with vancomycin due to concern for infection. Layered closure was performed of the tibial entrance incision. It should be noted that prior to flap coverage with posterior based flap, the tibial and peroneal nerve were placed under tension, tied and cut very proximally to allow retraction of the nerve to hopefully prevent neuroma. Once skin closure was performed, a large bulky stump dressing with slight compression Dylon wrap was placed. Anesthesia was reversed and the patient was transferred to postop in apparent stable condition. Prognosis is relatively poor given the patient's multiple medical comorbidities. We will start a stump berry picker machine operator in 2 days and allow wound care to continue to work with her due to some of her posterior pressure ulcers. It is possible as I expressed to her that she may eventually require kcikw-cec-fqth amputation if we are unable to attain successful ldyei-amk-[id number] amputation. Overall, prognosis is poor. <ELECTRONICALLY SIGNED> By: Clinton Young, 06/05/20 1230 [id number] Clinton Young DO /nt
--- NOTE | 2020-06-05 15:58 | NUR ---
FAXED CLINICAL UPDATE TO [facility] RECEIVED CONFIRMATION AND SPOKE WITH JOSE IN ADM. DP TO FOLLOW.
[2020-06-05 16:00] VITALS: BP 91/39
--- NOTE | 2020-06-05 18:02 | NUR ---
ASSUMED PATIENT CARE AT 0700. PATIENT BEING DIALYZED BY HD NURSE. TEMP HD LINE CHANGED BY HD NURSE. PATIENT HAD MULTIPLE STOOLS, LAST STOOL WAS BLOODY. GI PHYSICIAN CALLED AND NOTIFIED, NO NEW ORDERS. RECTAL PACKING REMAINS IN PLACE, SURGERY TEAM PLANS TO REMOVE PACKING TOMORROW. PATIENT GIVEN PO DIET, CONSUMED 25% OF LUNCH AND 100% OF DINNER. TUBE FEEDINGS REMAIN ON TILL PATIENT CONSISTANTLY HAS PO FOOD INTAKE. TUBE FEEDINGS ADVANCED TO GOAL. WOUND CARE AND DRESSING CHANGES COMPLETED PER ORDERS. NEW WOUND PHOTOS TAKEN AND PLACED IN PATIENT CHART. SBP REMAINS > 90. PATIENT ABLE TO ANSWER ORIENTATION QUESTIONS APPROPRIATELY WHEN ASKED, BUT REMAINS INTERMITTANTLY CONFUSED. WILL CONTINUE TO MONITOR.
[2020-06-05 20:07] VITALS: BP 94/65
[2020-06-06] VITALS: BP 77/42
[2020-06-06 04:32] VITALS: BP 92/52
--- NOTE | 2020-06-06 06:31 | NUR ---
PATIENTS CARES WERE ASSUMED AT SHIFT CHANGE. PATIENT WAS ASSESSED AND MEDS WERE PASSED. PATIENT WAS GIVEN HER PAIN MEDS AT HS AND THIS PATIENT HAD A MUCH BETTER NIGHT THEN THE NIGHT BEFORE. ROUNDS WERE DONE AND PATIENT ALSO KEPT HER CPAP ON.
[2020-06-06 07:45] VITALS: BP 77/47
[2020-06-06 08:50] LABS: HEMATOCRIT 24.8 % (37.0-47.0); HEMOGLOBIN 8.1 gm/dL (12.0-15.0); MCH 29.1 pg (26.0-34.0); MCHC 32.6 g/dL (28.0-37.0); MCV 89.3 fL (80.0-100.0); RBC 2.78 mil/uL (4.20-5.00); RDW 17.1 % (10.5-14.5); WBC 9.1 thou/uL (4.0-11.0)
[2020-06-06 16:00] VITALS: BP 93/46
[2020-06-06 16:15] VITALS: BP 93/46
--- NOTE | 2020-06-06 19:57 | NUR ---
PT CARE ASSUMED AT 0700. ASSESSMENTS CHARTED. MEDICATIONS CHARTED. RIJ 3L PICC. LT TEMP SUBCLAVIAN (DIALYSIS). ANURIC/INCONTINENT OF BOWEL. TUBE FEEDING; NEPRO 30 OUT OF 40 ML/HR GOAL, 100 ML FLUSH Q4. DIALYSIS MWF. PT HAD LG LOOSE BLACK STOOL WITH LUIS BLOOD IN AM; WITNESSED BY DR TAVERAS. EMERGENCY IR CONSULT PER DR TOMAS. PT TAKEN TO IR APPROX 0830 RETURNED APPROX 1600. DE-CLOT OF LT AV GRAFT. BALLOON OF LT FEMORAL AND LT ILIAC ARTERY. RT GROIN; HEMOSTASIS [id number]. UNABLE TO OBTAIN POST CATH VITALS MACHINE HAD DIFFICULT OBTAINING BP'S. CPAP AT HS.
[2020-06-06 20:15] VITALS: BP 102/114; BP 135/102
[2020-06-07 04:00] VITALS: BP 98/77
[2020-06-07 05:01] LABS: CALCIUM 7.4 mg/dL (8.5-10.1); CREATININE 2.4 mg/dL (0.6-1.0)
[2020-06-07 05:24] LABS: POTASSIUM 2.8 mmol/L (3.5-5.1)
[2020-06-07 05:31] LABS: HEMATOCRIT 23.3 % (37.0-47.0); HEMOGLOBIN 7.6 gm/dL (12.0-15.0); MCH 29.1 pg (26.0-34.0); MCHC 32.6 g/dL (28.0-37.0); MCV 89.4 fL (80.0-100.0); RBC 2.61 mil/uL (4.20-5.00); RDW 17.7 % (10.5-14.5); WBC 7.5 thou/uL (4.0-11.0)
--- NOTE | 2020-06-07 07:54 | NUR ---
ASSESSMENTS CHARTED, MEDS CHARTED GIVEN. PATIENT ON BEDREST, CONFUSED. ABDOMINAL WOUND DEHISED, BLACK, PURULENT DRAINAGE, REDRESSED. [facility] WOUND [facility] STATES TO DRESS WITH SILVADENE/MORPHINE WHICH WAS NOT ON MAY. RECEIVED ORDER FROM DR. MOSQUEDA. ON LOW AIR LOSS MATTRESS. FALL PRECAUTIONS IN PLACE.
[2020-06-07 08:00] VITALS: BP 115/59
--- NOTE | 2020-06-07 10:13 | NUR ---
PT IS AXOX1, KNOWS SELF. PT HAS MOMENTS OF AGITATION, OCASSIONALLY REMOVES NC. PT TO RECEIVE DIALYSIS TODAY. PT C/O PAIN AT 1010. HAD LOOSE STOOL THIS AM. GI LEGAL EXECUTIVE ASSISTANT CONSULTED, AND NO BLOOD NOTED IN STOOL THIS AM. BED BATH GIVEN. BP 115/56, HR103. AFEBRILE. WILL CONTINUE TO MONITOR VS. FALL PRECAUTIONS IN PLACE.
[2020-06-07 12:00] VITALS: BP 146/98
--- NOTE | 2020-06-07 14:37 | NUR ---
Per phys inquire into transfer to [facility] for Colorectal surgeon. Sp with fabi at [facility] transfer center faxed face sheet and uploaded radiology to cloud. Sp with Ashley later today who reports accepting phys Dr James and she is searching if bed avail. Sp with spouse to alert possible transfer to [facility].
[2020-06-07 15:00] VITALS: BP 163/48
[2020-06-07 15:45] VITALS: BP 136/87
== END 2020-06-07 19:40 | disposition short-term general hospital (02) | DRG 853 ==
LOC: ER 14:58 → ICU 20:22 → 3W 20:22 → 2N 20:22 → EROBS 20:22 → 3W 21:34 → ICU 05-18 23:23 → 2N 05-24 23:17 → ICU 06-01 12:55 → 2N 06-04 20:02
PROVIDERS: Hospitalist; Internal Medicine; Internal Medicine Gastroenterology; Nuclear Medicine Nuclear Cardiology; Nurse Practitioner; Nurse Practitioner Adult Health; Nurse Practitioner Family; Ophthalmology; Specialist; Student in an Organized Health Care Education/Training Program; Surgery; ADMIT Internal Medicine; ATTEND Internal Medicine
PROC: 0Y6J0Z1 Detachment at Left Lower Leg, High, Open Approach (ICD-10-PCS; 2020-05-17)
PROC: 02HV33Z Insertion of Infusion Device into Superior Vena Cava, Percutaneous Approach (ICD-10-PCS; 2020-05-18)
PROC: 5A09357 Assistance with Respiratory Ventilation, Less than 24 Consecutive Hours, Continuous Positive Airway Pressure (ICD-10-PCS; 2020-05-19)
PROC: 5A09357 Assistance with Respiratory Ventilation, Less than 24 Consecutive Hours, Continuous Positive Airway Pressure (ICD-10-PCS; principal; 2020-05-20)
PROC: 5A1D70Z Performance of Urinary Filtration, Intermittent, Less than 6 Hours Per Day (ICD-10-PCS; principal; 2020-05-20)
PROC: 0DLP8ZZ Occlusion of Rectum, Via Natural or Artificial Opening Endoscopic (ICD-10-PCS; principal; 2020-05-20)
PROC: 30233N1 Transfusion of Nonautologous Red Blood Cells into Peripheral Vein, Percutaneous Approach (ICD-10-PCS; principal; 2020-05-20)
PROC: 5A09357 Assistance with Respiratory Ventilation, Less than 24 Consecutive Hours, Continuous Positive Airway Pressure (ICD-10-PCS; 2020-05-21)
PROC: 5A09357 Assistance with Respiratory Ventilation, Less than 24 Consecutive Hours, Continuous Positive Airway Pressure (ICD-10-PCS; 2020-05-22)
PROC: 5A09357 Assistance with Respiratory Ventilation, Less than 24 Consecutive Hours, Continuous Positive Airway Pressure (ICD-10-PCS; 2020-05-23)
PROC: 5A1D70Z Performance of Urinary Filtration, Intermittent, Less than 6 Hours Per Day (ICD-10-PCS; 2020-05-23)
PROC: 5A09357 Assistance with Respiratory Ventilation, Less than 24 Consecutive Hours, Continuous Positive Airway Pressure (ICD-10-PCS; 2020-05-24)
PROC: 5A09357 Assistance with Respiratory Ventilation, Less than 24 Consecutive Hours, Continuous Positive Airway Pressure (ICD-10-PCS; 2020-05-25)
PROC: 047J3DZ Dilation of Left External Iliac Artery with Intraluminal Device, Percutaneous Approach (ICD-10-PCS; 2020-05-25)
PROC: B4181ZZ Fluoroscopy of Bilateral Renal Arteries using Low Osmolar Contrast (ICD-10-PCS; 2020-05-25)
PROC: 047C3DZ Dilation of Right Common Iliac Artery with Intraluminal Device, Percutaneous Approach (ICD-10-PCS; 2020-05-25)
PROC: B41D1ZZ Fluoroscopy of Aorta and Bilateral Lower Extremity Arteries using Low Osmolar Contrast (ICD-10-PCS; 2020-05-25)
PROC: 5A09357 Assistance with Respiratory Ventilation, Less than 24 Consecutive Hours, Continuous Positive Airway Pressure (ICD-10-PCS; 2020-05-26)
PROC: 5A09357 Assistance with Respiratory Ventilation, Less than 24 Consecutive Hours, Continuous Positive Airway Pressure (ICD-10-PCS; 2020-05-27)
PROC: 5A1D70Z Performance of Urinary Filtration, Intermittent, Less than 6 Hours Per Day (ICD-10-PCS; 2020-05-27)
PROC: 5A09357 Assistance with Respiratory Ventilation, Less than 24 Consecutive Hours, Continuous Positive Airway Pressure (ICD-10-PCS; 2020-05-28)
PROC: 5A1D70Z Performance of Urinary Filtration, Intermittent, Less than 6 Hours Per Day (ICD-10-PCS; 2020-05-29)
PROC: 0D5P8ZZ Destruction of Rectum, Via Natural or Artificial Opening Endoscopic (ICD-10-PCS; 2020-05-30)
PROC: 5A1D70Z Performance of Urinary Filtration, Intermittent, Less than 6 Hours Per Day (ICD-10-PCS; 2020-05-30)
PROC: 5A09357 Assistance with Respiratory Ventilation, Less than 24 Consecutive Hours, Continuous Positive Airway Pressure (ICD-10-PCS; 2020-05-31)
PROC: 30233M1 Transfusion of Nonautologous Plasma Cryoprecipitate into Peripheral Vein, Percutaneous Approach (ICD-10-PCS; 2020-05-31)
PROC: 5A09357 Assistance with Respiratory Ventilation, Less than 24 Consecutive Hours, Continuous Positive Airway Pressure (ICD-10-PCS; 2020-06-01)
PROC: 5A1D70Z Performance of Urinary Filtration, Intermittent, Less than 6 Hours Per Day (ICD-10-PCS; 2020-06-01)
PROC: 02H633Z Insertion of Infusion Device into Right Atrium, Percutaneous Approach (ICD-10-PCS; 2020-06-02)
PROC: B548ZZA Ultrasonography of Superior Vena Cava, Guidance (ICD-10-PCS; 2020-06-02)
PROC: 0D5P8ZZ Destruction of Rectum, Via Natural or Artificial Opening Endoscopic (ICD-10-PCS; 2020-06-02)
PROC: 0JH63XZ Insertion of Tunneled Vascular Access Device into Chest Subcutaneous Tissue and Fascia, Percutaneous Approach (ICD-10-PCS; 2020-06-02)
PROC: B5181ZA Fluoroscopy of Superior Vena Cava using Low Osmolar Contrast, Guidance (ICD-10-PCS; 2020-06-02)
PROC: 5A09357 Assistance with Respiratory Ventilation, Less than 24 Consecutive Hours, Continuous Positive Airway Pressure (ICD-10-PCS; 2020-06-02)
PROC: 5A09357 Assistance with Respiratory Ventilation, Less than 24 Consecutive Hours, Continuous Positive Airway Pressure (ICD-10-PCS; 2020-06-03)
PROC: 5A09357 Assistance with Respiratory Ventilation, Less than 24 Consecutive Hours, Continuous Positive Airway Pressure (ICD-10-PCS; 2020-06-05)
PROC: 5A1D70Z Performance of Urinary Filtration, Intermittent, Less than 6 Hours Per Day (ICD-10-PCS; 2020-06-05)
PROC: 3E05317 Introduction of Other Thrombolytic into Peripheral Artery, Percutaneous Approach (ICD-10-PCS; 2020-06-06)
PROC: B4151ZZ Fluoroscopy of Inferior Mesenteric Artery using Low Osmolar Contrast (ICD-10-PCS; 2020-06-06)
PROC: B4141ZZ Fluoroscopy of Superior Mesenteric Artery using Low Osmolar Contrast (ICD-10-PCS; 2020-06-06)
PROC: 047L3Z1 Dilation of Left Femoral Artery using Drug-Coated Balloon, Percutaneous Approach (ICD-10-PCS; 2020-06-06)
PROC: 5A09357 Assistance with Respiratory Ventilation, Less than 24 Consecutive Hours, Continuous Positive Airway Pressure (ICD-10-PCS; 2020-06-06)
PROC: 5A1D70Z Performance of Urinary Filtration, Intermittent, Less than 6 Hours Per Day (ICD-10-PCS; 2020-06-07)
DX: A41.9 Sepsis, unspecified organism (principal); N18.6 End stage renal disease; E43 Unspecified severe protein-calorie malnutrition; R65.21 Severe sepsis with septic shock; J96.02 Acute respiratory failure with hypercapnia; K22.11 Ulcer of esophagus with bleeding; J96.21 Acute and chronic respiratory failure with hypoxia; J96.22 Acute and chronic respiratory failure with hypercapnia; E11.52 Type 2 diabetes mellitus with diabetic peripheral angiopathy with gangrene; I96 Gangrene, not elsewhere classified; N17.9 Acute kidney failure, unspecified; K62.6 Ulcer of anus and rectum; D62 Acute posthemorrhagic anemia; M31.9 Necrotizing vasculopathy, unspecified; Z68.41 Body mass index [BMI] 40.0-44.9, adult; I69.354 Hemiplegia and hemiparesis following cerebral infarction affecting left non-dominant side; I13.2 Hypertensive heart and chronic kidney disease with heart failure and with stage 5 chronic kidney disease, or end stage renal disease; Z20.822 Contact with and (suspected) exposure to COVID-19; J44.9 Chronic obstructive pulmonary disease, unspecified; I77.1 Stricture of artery; I50.9 Heart failure, unspecified; E03.9 Hypothyroidism, unspecified; I95.89 Other hypotension; F32.9 Major depressive disorder, single episode, unspecified; R53.81 Other malaise; L89.322 Pressure ulcer of left buttock, stage 2; G47.33 Obstructive sleep apnea (adult) (pediatric); I48.91 Unspecified atrial fibrillation; K44.9 Diaphragmatic hernia without obstruction or gangrene; E11.649 Type 2 diabetes mellitus with hypoglycemia without coma; E66.01 Morbid (severe) obesity due to excess calories; D69.6 Thrombocytopenia, unspecified; E87.6 Hypokalemia; R41.0 Disorientation, unspecified; L89.152 Pressure ulcer of sacral region, stage 2; L89.312 Pressure ulcer of right buttock, stage 2; I70.8 Atherosclerosis of other arteries; E11.22 Type 2 diabetes mellitus with diabetic chronic kidney disease; Z99.2 Dependence on renal dialysis; Z79.899 Other long term (current) drug therapy
CPT/HCPCS: 10078; 10081; 10879; 32100; 50010; 50101; 50386; 51412; 56524; 56525; 56526; 56527; 56528; 57091; 57092; 57180; 58567; 62110; 62900; 70005; 85076